=== PATIENT | female | born 1950 | race Caucasian/White ===

== ENCOUNTER 2024-09-25 07:51 | Emergency (ER) | payer MEDICARE, OTHER ==
--- NOTE | 2024-09-25 07:59 | ERPHSYRPT ---
- History of Present Illness Time Seen by Provider: 09/25/24 07:59 Source: patient, EMS Exam Limitations: no limitations Physician History: This is a 73-year-old white female patient of Dr. Hope who was brought to the emergency department by the custodial aide service because of a fall that occurred last night at approximately 8:30 PM. Patient states that she lost her balance and hit her left periorbital area against a wooden chair, landed on her left knee and then twisted her left ankle. Patient states she occasionally uses alcohol and is a daily smoker of tobacco cigarettes. She denies loss of consciousness. She is not on any anticoagulation therapy. She has bruising in all the above areas of injury. Patient has a history of hyperthyroidism, depression, hypertension, hyperlipidemia and pulmonary fibrosis. Patient denies chest pain. Patient denies shortness of breath. She has no abdominal pain. She denies back pain. She denies neck pain Occurred: yesterday Injuries/Pain Location: face (Left periorbital area), lower extremity (Left knee and left ankle) Loss of Consciousness: no loss of consciousness Quality: aching Severity of Pain-Max: mild Severity of Pain-Current: mild Modifying Factors: Improves With: movement Associated Symptoms (Fall): extremity injury (Left knee and left ankle), No slurred speech, No vision changes Allergies/Adverse Reactions: lisinopril Allergy (Verified 09/25/24 08:02) Tightness of Throat Penicillins Allergy (Verified 09/25/24 08:02) Shortness of Breath Home Medications: Folic Acid 1 mg [Folate 1 mg] 1 mg PO DAILY 07/03/24 [History] Multivitamin [Multivitamins] 1 each PO DAILY 07/03/24 [History] Amlodipine Besylate 10 mg PO DAILY 08/21/24 [History] Atorvastatin Calcium 40 mg PO DAILY 08/21/24 [History] Diclofenac Sodium 50 mg [Voltaren 50 mg] 50 mg PO UD 08/21/24 [History] Fluoxetine HCl 10 mg [Prozac 10 mg] 30 mg PO DAILY 08/21/24 [History] Levothyroxine Sodium 150 Mcg [Synthroid 150 Mcg] 1 tab PO UD 08/21/24 [History] Lidocaine/Prilocaine 5 gm [EMLA Cream 5 GM] 2.5 gm TP PRN PRN 08/21/24 [History] Nintedanib Esylate [Ofev] 150 mg PO DAILY 08/21/24 [History] Trazodone HCl 50 mg [Desyrel 50 mg] 100 mg PO HS PRN 08/21/24 [History] Travel Risk - International Travel Have you traveled outside of the country in past 3 weeks: No - Emerging Infectious Disease Are you exhibiting symptoms associated with any current EIDs: No - Review of Systems Constitutional: No Symptoms Eyes: No Symptoms Ears, Nose, & Throat: No Symptoms Respiratory: No Symptoms Cardiac: No Symptoms Abdominal/Gastrointestinal: No Symptoms Musculoskeletal: Fall, Injury (Left knee and left ankle) Skin: Other (Ecchymosis and swelling in the left periorbital area) Neurological: No Symptoms Psychological: No Symptoms Endocrine: No Symptoms Hematologic/Lymphatic: No Symptoms Immunological/Allergic: No Symptoms All Other Systems: Reviewed and Negative - Past Medical History Neurological History: No Pertinent History ENT History: No Pertinent History Cardiac History: Hypertension Respiratory History: Other Endocrine Medical History: Hyperthyroidism Musculoskeletal History: No Pertinent History GI Medical History: No Pertinent History History: No Pertinent History Psycho-Social History: Depression Female Reproductive Disorders: No Pertinent History Other Medical History: IPF(pulmonary fibrosis) - Past Surgical History Past Surgical History: Yes Neuro Surgical History: No Pertinent History Cardiac: No Pertinent History Respiratory: No Pertinent History Gastrointestinal: Appendectomy, Cholecystectomy Genitourinary: No Pertinent History Female Surgical History: Hysterectomy Other Surgical History: 2x knee scopes. bilateral ankles. port insertion - Social History Smoking Status: Current some day smoker Drug Use: none - Nursing Vital Signs Nursing Vital Signs: Initial Vital Signs Temperature 98.1 F 09/25/24 07:52 Pulse Rate 117 H 09/25/24 07:52 Respiratory Rate 16 09/25/24 07:52 Blood Pressure 154/67 09/25/24 07:52 O2 Sat by Pulse Oximetry 98 09/25/24 07:52 Pain Scale Pain Intensity 5 - Madonna Coma Score Best Eye Response ([place]): (4) open spontaneously Best Verbal Response ([place]): (5) oriented Best Motor Response ([place]): (6) obeys commands Madonna Total: 15 - Physical Exam General Appearance: no apparent distress, alert, anxiety Head Injury: Cleaning's Sign (Left periorbital area swelling and bruising), No lacerations Eye Exam: PERRL/EOMI, eyes nml inspection ENT Exam: airway nml, evidence of ENT injury, nml ext.inspection Neck Exam: supple, trachea midline, full range of motion, normal alignment, normal inspection Respiratory/Chest Exam: normal breath sounds, No chest tenderness, No respiratory distress, No ecchymosis, No crepitus Cardiovascular Exam: normal heart sounds, regular rate/rhythm Gastrointestinal Exam: soft, normal bowel sounds, No tenderness Rectal Exam: not done Back Exam: normal inspection, normal range of motion, No CVA tenderness, No vertebral tenderness Extremity Exam: normal inspection, normal range of motion, pelvis stable Neurologic Exam: alert, oriented x 3, cooperative, bargeman II-XII nml as tested, sensation nml Skin Exam: ecchymosis (Left periorbital region,) SpO2 Interpretation: normal O2 Delivery: Room Air - Course Nursing assessment & vital signs reviewed: Yes Ordered Tests: Active Orders 24 hr Category Date Time Status Consult Podiatry ROUTINE Cons 09/25/24 10:23 Active ANKLE (3 VIEWS) Stat Exams 09/25/24 08:03 Completed FACIAL BONES WO CONTRAST [CT] Stat Exams 09/25/24 07:59 Completed HEAD WITHOUT CONTRAST [CT] Stat Exams 09/25/24 07:59 Completed KNEE (3 VIEWS) Stat Exams 09/25/24 08:02 Completed LOWER EXTREMITY WO CONTRAST [CT] Stat Exams 09/25/24 09:56 Taken - Progress Progress: unchanged Progress Note: 09/25/24 08:40 My medical decision making and the assignment of low to moderate complexity is based on review of the patient's past medical history, review of the patient's medication list, reviewed patient drug allergy list, history present illness and physical findings on examination. The workup in this patient includes CT scan of the head and face both without contrast. X-ray of the left knee and left ankle. Differential diagnosis includes but is not limited to fracture/dislocation, sprain left knee and left ankle, acute intracranial abnormality, contusions/facial bone fractures 09/25/24 09:31 The radiologist interpreted the following radiographic studies and I reviewed the interpretation: Left ankle x-ray shows a remote lateral malleolus fracture. There is a questionable tiny acute cortical fracture with soft tissue swelling near the lateral malleolus. Left knee x-ray shows nondisplaced oblique, acute fracture of the proximal shaft of the fibula. CT scan of the head without contrast shows left periorbital soft tissue swelling with paranasal sinus disease. CT scan of the facial bones without contrast shows left periorbital soft tissue swelling without fracture. 09/25/24 09:[address] Wisdom, our in-house repairer controller tester. He reviewed the left ankle and left knee x-rays. He wants a CT scan of the left ankle and a posterior splint, mid calf level placed. He states that the high fibular fracture is nondisplaced and no surgical intervention necessary. She will then follow-up in the clinic on 09/29/2024. We will make arrangements to obtain a walker for this patient. She feels she cannot use crutches Counseled pt/family regarding: diagnosis, rad results Medical Desision Making - Discussion of managment Care discussed with:: specialist (dr. wisdom podiatry) - Diagnostic Testing Diagnostic test were ordered, analyzed, and reviewed by me: Yes Radiological Interpretation: Reviewed by me, Teleradiologist Report - Risk of complications Low Risk: Low risk of morbidity from additional dx testing or treatment - Departure Departure Disposition: Home Clinical Impression: Closed left fibular fracture, Closed left ankle fracture Condition: Stable Critical Care Time: No Referrals: PATRICIA HOPE DO [Primary Care Provider] - Follow up/PCP as directed Additional Instructions: Ice pack to area 3 times daily. Avoid alcohol ingestion. Follow up with Dr. Wisdom in his office at scheduled appointment date and time. If there are no contraindications, use ibuprofen and Tylenol for pain control. Ambulate with a walker
[2024-09-25 08:08] VITALS: TEMP 98.1
--- NOTE | 2024-09-25 09:12 | XRAY ---
Indication: Left orbital injury following fall. Multiple contiguous axial images obtained through the head without contrast. Comparison: None Moderate left periorbital soft tissue swelling. Normal appearing brain parenchyma, ventricles, and bony calvarium for patient's age. Moderate right and minimal left maxillary sinus mucosal thickening without fluid leveling. Mastoid air cells are clear. Impression: Left periorbital soft tissue swelling and paranasal sinus disease. Remaining CT head without contrast exam is normal.
--- NOTE | 2024-09-25 09:18 | XRAY ---
Indication: Left orbital injury following fall. Multiple contiguous axial images obtained through the facial bones. Sagittal and coronal reformatted images obtained. Comparison: None A few bilateral dental amalgams produces beam artifact. Moderate left periorbital soft tissue swelling. No acute fracture or suspicious bony lesions. Orbits including roof, gonzalez, and floors intact. Moderate right and mild left maxillary sinus mucosal thickening without fluid leveling. Nasal passages are clear with mild nasal septal deviation of the right and incidental right middle turbinate christi bullosa. Visualized noncontrasted soft tissues demonstrates mild scattered carotid calcifications bilaterally. A few centimeter/subcentimeter cervical and submandibular lymph nodes, none pathologically enlarged. Visualized cervical spine intact with moderate multilevel degenerative spondylosis. TMJ bilaterally symmetric. Impression: 1. Beam artifact from dental amalgams. 2. Left periorbital soft tissue swelling without fracture. 3. Incidental paranasal sinus disease, nasal septal deviation, osteopenia, multilevel cervical degenerative spondylosis, and bilateral carotid calcifications.
--- NOTE | 2024-09-25 09:22 | XRAY ---
Indication: Fall with injury. Comparison: None 3 view left knee demonstrates nondisplaced oblique acute fracture proximal shaft fibula. Elsewhere osteopenia, minimal medial/lateral joint space degenerative chondrocalcinosis, small nonspecific effusion, and small posterior fabella.
--- NOTE | 2024-09-25 09:22 | XRAY ---
Indication: Fall with injury. Comparison: None 3 view left ankle demonstrates remote appearing lateral malleolus fracture deformity with heterotopic ossifications. Query tiny acute cortical fracture lateral malleolus with soft tissue swelling. Elsewhere osteopenia, mild talotibial degenerative changes, small posterior/tiny plantar heel spur, and minimal posterior tibial artery calcifications.
[2024-09-25 10:18] VITALS: RESP 15
--- NOTE | 2024-09-25 11:08 | XRAY ---
Indication: Ankle fracture. Multiple contiguous axial images obtained through the left ankle without contrast. Sagittal and coronal reformatted images obtained. Comparison: None Osseous structures demineralized. Ankle joint demonstrates moderate degenerative arthropathy with multiple small anterior, lateral, and lesser degree medial ankle heterotopic ossifications. Nondisplaced acute hairline fracture base medial malleolus best seen on coronal reformatted images. Lateral malleolus demonstrates remote fracture deformity. Lateral malleolus also demonstrates tiny hairline acute cortical fracture also best seen on coronal reformatted images. Incidental small posterior/tiny plantar heel spurs. Diffuse medial and lateral soft tissue swelling/edema. Achilles tendon and plantar aponeurosis intact. No focal solid/cystic soft tissue mass or abnormal fluid collection. Impression: 1. Nondisplaced acute fracture base medial malleolus and tiny cortical fracture lateral malleolus. Diffuse soft tissue swelling. 2. 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
[2024-09-25 11:31] VITALS: BP 133/108; PULSE 111; O2SAT 97
== END 2024-09-25 11:40 | disposition home or self-care (01) ==
LOC: ED 07:51
DX: S82.832A Other fracture of upper and lower end of left fibula, initial encounter for closed fracture (principal); S82.845A Nondisplaced bimalleolar fracture of left lower leg, initial encounter for closed fracture; W01.190A Fall on same level from slipping, tripping and stumbling with subsequent striking against furniture, initial encounter; R51.9 Headache, unspecified; I10 Essential (primary) hypertension; E78.5 Hyperlipidemia, unspecified; Z79.899 Other long term (current) drug therapy; Z72.0 Tobacco use
CPT/HCPCS: 29515; 70450; 70486; 73562; 73610; 73700; 99284